=== PATIENT | female | born 1960 | race Caucasian/White ===

== ENCOUNTER 2017-04-09 08:52 | Day surgery (SDC) | payer MEDICAID ==
[2017-04-09] MEDS ORDERED: Lactated Ringer's 1,000 ML IV ONE (09:27)
[2017-04-09 10:01] VITALS: RESP 15; O2SAT 100
[2017-04-09] MEDS ORDERED: Propofol 10 mg/ml Inj (20 ML) ONE (10:28)
[2017-04-09] MEDS ORDERED: Lidocaine 2% MPF (5 ml) Inj ONE (10:29)
[2017-04-09 10:55] VITALS: BP 107/67; PULSE 97; TEMP 96.5
== END 2017-04-09 11:21 | disposition home or self-care (01) ==
LOC: H.ENDO 08:52
PROVIDERS: ATTEND Internal Medicine Gastroenterology
DX: Z12.11 Encounter for screening for malignant neoplasm of colon (principal); K64.8 Other hemorrhoids
CPT/HCPCS: 45378; J2704; J7120